=== PATIENT | male | born 1980 | race Caucasian/White ===

== ENCOUNTER 2024-08-08 20:30 | Emergency (ER) | payer OTHER, SELFPAY ==
--- NOTE | ~2024-08-08 | XR_ITS ---
CLINICAL HISTORY: left index finger injury Left fingers, 3 views COMPARISON: None FINDINGS: No acute fracture. No dislocation. Distal 2nd digit soft tissue injury. No visible foreign body. IMPRESSION: No acute fracture. Distal 2nd digit soft tissue injury. This document has been electronically signed by: Shan Fountain MD on 08/08/2024 22:43:00
[2024-08-08 21:37] VITALS: BP 114/74; PULSE 73; RESP 18; TEMP 36.8; O2SAT 98; BMI 26.1
--- NOTE | 2024-08-09 03:38 | ED_ITS ---
HPI - General Adult General Chief complaint: Wound/Laceration Stated complaint: left 2nd finger (index) laceration Time Seen by Provider: 08/09/24 02:27 Source: patient, RN notes reviewed and old records reviewed Mode of arrival: ambulatory Limitations: no limitations History of Present Illness ED Provider: Margaret HPI narrative: 44-year-old male presents for evaluation of a laceration to his left index finger the patient was using a tile trimmer when his finger accidentally made contact with the blade he sustained a laceration to the left 2nd fingertip happened just prior to arrival he believes his last tetanus was 10-15 years ago Related Data Previous Rx's ?Medication ?Instructions ?Recorded cephalexin 500 mg tablet 500 mg PO Q8H #9 tabs 08/09/24 Allergies Allergy/AdvReac Type Severity Reaction Status Date / Time No Known Allergies Allergy Verified 08/08/24 21:37 Review of Systems Constitutional: Constitutional: Denies body ache(s), Denies chills and Denies fever(s) ENT: Denies vertigo and Denies dizziness Cardiovascular: Cardiovascular: Denies chest pain and Denies chest pain at re st Integumentary/Breasts: Skin/Breast: Reports wounds Neurologic: Denies vertigo and Denies dizziness PMF Social History Social History Advance Directives: No Advance Directives Information Provided: Yes Do you have a plan to hurt others: No Plan Physical Exam ED Vital Signs: Vital Signs - 24 hr 08/08/24 21:37 Temperature 98.2 F Pulse Rate 73 Respiratory Rate 18 Blood Pressure 114/74 Pulse Oximetry 98 Oxygen Delivery Method Room Air BMI result Body Mass Index 26.1 Extrem Other: there is a macerated laceration to the left 2nd index fingertip. this is a vague H-shape laceration. he is able to flex and extend the finger at the PIP and D IP joints with full range of motion Procedures Laceration Laceration 1: Site: hand Side (If applicable): left Size (cm): 6 Description: flap and irregular Depth: simple, single layer Local Anesthetic: lidocaine 2% ( as a digital block) Amount of anesthesia used (mL): 5 Pre-repair: wound explored, irrigated extensively and deep structures int act Skin layer closed with: nylon Size (cm): 4-0 Number of sutures: 11 Technique: simple, interrupted Medical Decision Making Medical Decision Making [facility] Narrative: the patient's wound was cleaned and closed, see procedure note. Procedure was performed by GREG Rouse-student under my direct supervision. Was negative for fracture, no indication for tendon injury. The patient be placed on a 3 day prophylactic antibiotic course due to the complicated nature of the laceration Differential Diagnosis Differential Diagnoses: The differential diagnosis associated with the presentation includes laceration Skin tear Puncture wound Abrasion .fracture Independent Interpretation I performed an independent interpretation of an: Plain X-Ray Interpretation: Soft tissue injury without acute bony fracture Radiology Impression Discussion of test interpretation with radiology: I have reviewed the radiologist's reading. Radiologist Impression: FINDINGS: No acute fracture. No dislocation. Distal 2nd digit soft tissue injury. No visible foreign body. IMPRESSION: No acute fracture. Distal 2nd digit soft tissue injury. This document has been electronically signed by: Shan Fountain MD on 08/08/2024 22:43:00 Discharge Plan Discharge Clinical Impression: Laceration Patient Disposition: Home, Self-Care Instructions: Laceration (ED) Additional Instructions: you had 11 sutures placed to your left index finger. These can be removed in 14 days. You can call your primary doctor or return to the ER. You may apply topical antibiotics such as bacitracin or Neosporin once per day keep the area clean and dry. Your tetanus was updated today. Take cephalexin 3 times a day for the next 3 days to prevent infection Prescriptions: New cephalexin 500 mg tablet 500 mg PO Q8H Qty: 9 0RF Print Language: Sinhala
[2024-08-09] MEDS: Diphth,Pertus(ACell),Tet Adult 0.5 ML SYRINGE IM (03:45)
[2024-08-09] MEDS: cephALEXin 500 MG CAPSULE PO (03:45)
[2024-08-09 03:56] VITALS: BP 126/83; PULSE 75; RESP 16; TEMP 36.6; O2SAT 97
[2024-08-09 04:04] VITALS: BP 126/83; PULSE 75; RESP 16; TEMP 36.6; O2SAT 97
== END 2024-08-09 04:06 | disposition home or self-care (01) ==
PROVIDERS: Emergency Provider Emergency Medicine; PCP Internal Medicine
DX: S61.211A Laceration without foreign body of left index finger without damage to nail, initial encounter (principal); W29.3XXA Contact with powered garden and outdoor hand tools and machinery, initial encounter; Y93.H2 Activity, gardening and landscaping; Y92.017 Garden or yard in single-family (private) house as the place of occurrence of the external cause; Y99.9 Unspecified external cause status; Z23 Encounter for immunization
CPT/HCPCS: 12002; 73140; 90471; 90715; 99284

== ENCOUNTER → 2024-08-08 21:52 | Outpatient (BNV) | payer SELFPAY | PROVIDERS: PCP Internal Medicine; Visit Provider Radiology Diagnostic Radiology | DX: S69.92XA Unspecified injury of left wrist, hand and finger(s), initial encounter (principal) | CPT/HCPCS: 73140 ==